=== PATIENT | male | born 1995 ===

== ENCOUNTER 2021-06-28 11:58 | Emergency (ER) | payer OTHER ==
[2021-06-28] MEDS ORDERED: Xylocaine 1% w/ Epi 1:100K 10 ML VIAL ONE (14:05)
[2021-06-28] MEDS ORDERED: Boostrix 0.5 ML (Tdap) VIAL ONE (15:06)
== END 2021-06-28 15:22 | disposition home or self-care (01) ==
LOC: ERS 11:58
DX: L02.416 Cutaneous abscess of left lower limb (principal)
CPT/HCPCS: 10060; 90715